=== PATIENT | male | born 1965 ===

== ENCOUNTER 2024-12-28 10:26 | Emergency (ER) | payer MEDICAID, OTHER ==
[~2024-12-28] VITALS: Ht 185.4 cm; Wt 92.6 kg
[2024-12-28 10:34] VITALS: BP 185/112; RESP 24; O2SAT 99
--- NOTE | 2024-12-28 10:50 | ED.PDOC ---
HPI Comments HPI: Initial Vital Signs: Temp : 98.4F BP: 185/112 HR: 119 RR: 24 SpO2: 99% Past Medical History: Anxiety, Depression, ADHD, CHF, GERD, Orthostatic HTN Past Surgical History: Denies Social History: Denies smoking, ETOH, or drug use. Medications: Nitroglycerin Allergies: NKDA HPI: Poor Historian. 59-year-old male brought in by ambulance from home for a near-syncope episode that happened this morning. Patient was trying to get out of bed felt lightheaded and fell forward without any head or neck injury. No loss of consciousness. There was able to brace himself going down against the n ightstand. Patient developed chest pain afterwards that is nonspecific. He also stated he had some chest pain last night that is also nonspecific in the took some nitroglycerin for it were and went away. Patient was history of orthostatic hypotension. Vital signs pre-hospital course at his place of residency were stable with the exception of tachycardia. Patient had some nause a and was given Zofran by EMS. Patient still has some nonspecific intermittent chest discomfort. Past Medical History: Past Surgical History: REVIEW OF SYSTEMS: CONSTITUTIONAL: Denies acute: fever, diaphoresis, chills, HEAD: Denies acute: headache, photophobia Eyes: Denies acute: Double vision, vision loss, eye pain, eye discharge. EARS: Denies acute: tinnitus, hearing loss, ear discharge, ear pain, THROAT: Denies acute: sore throat, swelling, difficulty swallowing , pain with swallowing, change in voice. NECK: Denies acute: neck pain, neck swelling, stiff neck. HEART: Denies acute : , palpitations, LUNGS: Denies acute: SOB, wheezing, cough, hemoptysis ABDOMEN: Denies acute: abdominal pain, Nausea, Vomiting, diarrhea, melena , hematemesis, hematochezia SKIN: Denies acute: rash, redness, lesions, itchiness. EXTREMITIES: Denies acute: calf pain, numbness, tingling, weakness, denies pain in extremity. Denies acute: Low back pain. Neuro: Denies acute: focal neurological deficit, motor or sensory focal neurological deficit, tremors, seizure like activity, confusion, change in mental status, loss of bowel or bladder function, cauda equina like symptoms. : Denies acute: dysuria, hematuria, flank pain, increase in urinary frequency. PSYCH: Denies acute: hallucination, suicidal ideation, homicidal ideation. PHYSICAL EXAM: General: no acute distress, awake and alert. Head: normocephalic, atraumatic. Neck: supple, trachea is midline, no swelling. Throat: Normal phonation. Eyes:, no erythema, no purulent discharge, no proptosis, no icterus. Heart: regular tachycardic, no significant murmur appreciated. Lungs: no apparent respiratory distress, Able to speak in full sentences. No wheezing, no rhonchi, no crackles. No stridors Clear to auscultation bilaterally. Abdomen: non tender to palpation, non distended, soft, no guarding, no rebound, + bowel sounds. Neuro: Awake, Alert, oriented to name, self, situation, follows commands GCS=15. Speech is normal. Skin: no petechia, no purpura, no cyanosis, non-pale, not jaundice. Lower extremities: --no - Pitting edema no deformity, no focal swelling, no calf TTP. Makes eye contact. moves all four extremities. Face: no apparent facial droop. ED COURSE: Chief Complaint: Chest Pain Time Seen by MD: 10:41 Reviewed Notes: Nurses Notes, Allergies Allergies: Coded Allergies: NSAIDs (Verified Allergy, Unknown, 12/28/24) Promethazine (Verified Allergy, Unknown, 12/28/24) Sulfamethoxazole w/Trimethoprim (Verified Allergy, Unknown, 12/28/24) Information Source: Patient, Emergency Med Personnel Mode of Arrival: EMS Was a procedure done? Was a procedure done?: No CP Differential Dx Differential Diagnosis: N/A Differential Diagnosis: Other (Ddx include but not limitied to gastritis, musculoskeletal pain, radiculopathy, atypical chest pain, dissection, aneurysm, ACS, unstable angina, hiatal hernia, GERD, anxiety, costochondritis, PE, pneumothroax, neoplasm, cardiac ischemia, drug abuse, anemia.) X-Ray, Labs, Meds, VS Vital Signs Date Time Temp Pulse Resp B/P (MAP) Pulse Ox O2 Delivery O2 Flow Rate FiO2 12/28/24 11:49 Room Air* 0 21 12/28/24 11:35 185/112 12/28/24 11:25 108 12/28/24 10:35 106 12/28/24 10:34 98.4 119 24 185/112 (136) 99 Lab Test 12/28/24 11:07 Range/Units White Blood Count 7.9 4.4-10.8 10^3/uL Red Blood Count 5.83 4.5-5.90 10^6/uL Hemoglobin 16.2 13.5-17.5 g/dL Hematocrit 48.9 41.0-53.0 % Mean Corpuscular Volume 83.9 80.0-100.0 fL Mean Corpuscular Hemoglobin 27.9 L 28.0-32.0 pg Mean Corpuscular Hemoglobin Concent 33.2 32.0-36.0 g/dL Red Cell Distribution Width 16.6 H 11.8-14.3 % Platelet Count 323 140-450 10^3/uL Mean Platelet Volume 7.8 6.9-10.8 fL Neutrophils (%) (Auto) 76.8 37.0-80.0 % Lymphocytes (%) (Auto) 15.1 10.0-50.0 % Monocytes (%) (Auto) 6.3 0.0-12.0 % Eosinophils (%) (Auto) 1.2 0.0-7.0 % Basophils (%) (Auto) 0.6 0.0-2.0 % Neutrophils # (Auto) 6.1 1.6-8.6 10 ^3/uL Lymphocytes # (Auto) 1.2 0.4-5.4 10 ^3/uL Monocytes # (Auto) 0.5 0-1.3 10 ^3/uL Eosinophils # (Auto) 0.1 0-0.8 10 ^3/uL Basophils # (Auto) 0 0-0.2 10 ^3/uL Nucleated Red Blood Cells 0.2 % Sodium Level 134 L 136-145 mmol/L Potassium Level 4.2 3.5-5.1 mmol/L Chloride Level 99 98-107 mmol/L Carbon Dioxide Level 25 20-31 mmol/L Anion Gap 10 5-15 Blood Urea Nitrogen 11 9-23 mg/dL Creatinine 0.99 0.700-1.30 mg/dL Glomerular Filtration Rate Calc 88 >90 mL/min BUN/Creatinine Ratio 11.1 10.0-20.0 Serum Glucose 155 H 74-106 mg/dL Lactic Acid Level 2.0 0.4-2.0 mmol/L Calcium Level 10.3 8.7-10.4 mg/dL Magnesium Level 1.5 L 1.6-2.6 mg/dL Troponin I High Sensitivity 9 </=54 ng/L B-Type Natriuretic Peptide 186.61 0-100 pg/mL Current Medications Medications (Trade) Dose Ordered Sig/Ella Route Start Time Stop Time Status Last Admin Aspirin (Ecotrin Enteric Coated Tablet) 325 mg ONCE ONCE PO 12/28/24 11:00 12/28/24 11:01 DC 12/28/24 11:34 Nitroglycerin (Ntrostat Sublingual) 0.4 mg ONCE ONCE SL 12/28/24 11:00 12/28/24 11:01 DC 12/28/24 11:35 Sodium Chloride 1,000 ml @ 1,000 mls/hr Q1H ONCE IV 12/28/24 11:00 12/28/24 11:59 DC 12/28/24 11:34 [place] [id number] Ph: [phone] DIAGNOSTIC IMAGING Diagnostic Imaging Report : [id number] Signed PATIENT: ANNAMARIA GUERREROT: [id number] UNIT: [id number] : 1965 LOC: ER ROOM / BED: / AGE / SEX: 59 / M ADM STATUS: REG ER SERVICE 1045 ORDERING PHYSICIAN: ER PROCEDURE(s): CXR1 - CHEST XRAY 1 VIEW REASON: CP ORDER NUMBER(s): [id number], ACCESSION NUMBER(s): [id number] EXAM: XR Chest, 1 View CLINICAL INDICATION: CP TECHNIQUE: Frontal view of the chest. COMPARISON: None FINDINGS: LUNGS AND PLEURAL SPACES: Unremarkable. No consolidation. No pneumothorax. HEART: Unremarkable. No cardiomegaly. MEDIASTINUM: Unremarkable. Normal mediastinal contour. BONES/JOINTS: Unremarkable. No acute fracture. OTHER FINDINGS: . None. IMPRESSION: No acute cardiopulmonary process. ATED BY: JUAN BURDEN MD DICTATED DATE/TIME: 12/28/24 1118 SIGNED BY: JUAN BURDEN MD SIGNED DATE/TIME: 12/28/241117 CC: Time of 1ST Reevaluation: 11:41 Reevaluation 1ST: Improved Patient Education/Counseling: Diagnosis, Treatment Family Education/Counseling: Diagnosis, Treatment Comments Patient presented with the above HPI.--cardiac---workup was initiated. patient was found with the above mentioned diagnosis. the following medications were ordered: please refer to order lists of meds and tests obtained by myself Dr. Alvarenga. Patient ED course and VS have been stabilized. Patient has been reassessed in the ED and remained in a stable condition. Pertinent incidental findings were discussed with the patient and/or family. Patient/family voices understanding and is agreeable with plan. Patient has been observed in the ED adequate length of time to insure improvement/stability. Escalation of care considered: Consideration of escalation to observation or admission Patient was ADMITTED to the medicine team for further evaluation and treatment of their presentation. However patient decided to leave against medical advice. All the reports of any imaging studies that were ordered by myself were reviewed by myself. Departure 1 Departure Time of Disposition: 12:48 Impression: Primary Impression: Chest pain Additional Impression: Near syncope Disposition: ADMITTED INPATIENT Admit to: Tele Condition: Guarded Discharged With: Self Critical Care Note Critical Care Time?: No ( ) Heart Score Heart Score: Heart Score Response (Comments) Value History Moderate Suspicious 1 EKG Normal 0 Age 45-64 1 Risk Factors 1 or 2 risk factors 1 Troponin Normal limit 0 Total 3 I personally scribed for RENETTA ALVARENGA DO ([email or web address]) on 12/28/24 at 10:50. Electronically submitted by Ed Kenny ([email or web address]). I personally scribed for RENETTA ALVARENGA DO ([email or web address]) on 12/28/24 at 11:44. Electronically submitted by Ed Kenny ([email or web address]). RENETTA ALVARENGA DO Dec 28, 2024 10:50
--- NOTE | 2024-12-28 11:20 | DVH ---
EXAM: XR Chest, 1 View CLINICAL INDICATION: CP TECHNIQUE: Frontal view of the chest. COMPARISON: None FINDINGS: LUNGS AND PLEURAL SPACES: Unremarkable. No consolidation. No pneumothorax. HEART: Unremarkable. No cardiomegaly. MEDIASTINUM: Unremarkable. Normal mediastinal contour. BONES/JOINTS: Unremarkable. No acute fracture. OTHER FINDINGS: . None. IMPRESSION: No acute cardiopulmonary process.
[2024-12-28 11:24] LABS: Basophils # (auto) 0 10 ^3/uL (0-0.2); Basophils % (auto) 0.6 % (0.0-2.0); Eosinophils # (auto) 0.1 10 ^3/uL (0-0.8); Eosinophils % (auto) 1.2 % (0.0-7.0); Hematocrit 48.9 % (41.0-53.0); Hemoglobin 16.2 g/dL (13.5-17.5); Lymphocytes # (auto) 1.2 10 ^3/uL (0.4-5.4); Lymphocytes % (auto) 15.1 % (10.0-50.0); Mean Corpuscular Hemoglobin 27.9 pg (28.0-32.0); Mean Corpuscular Hgb Conc. 33.2 g/dL (32.0-36.0); Mean Corpuscular Volume 83.9 fL (80.0-100.0); Monocytes # (auto) 0.5 10 ^3/uL (0-1.3); Monocytes % (auto) 6.3 % (0.0-12.0); Neutrophils # (auto) 6.1 10 ^3/uL (1.6-8.6); Neutrophils % (auto) 76.8 % (37.0-80.0); Nucleated Red Blood Cells % 0.2 %; Platelet Count (auto) 323 10^3/uL (140-450); Red Blood Cells 5.83 10^6/uL (4.5-5.90); Red Cell Distribution Width 16.6 % (11.8-14.3); White Blood Cell 7.9 10^3/uL (4.4-10.8)
[2024-12-28 11:25] VITALS: PULSE 108
[2024-12-28] MEDS: SODIUM CHLORIDE 0.9% 1,000 ML IV ONE (11:34)
[2024-12-28] MEDS: ASPirin-EC 325mg tab PO ONE (11:34)
[2024-12-28] MEDS: NITROGLYCERIN 0.4 MG SL TAB SL ONE (11:35)
[2024-12-28 11:40] LABS: Anion Gap 10 (5-15); Carbon Dioxide 25 mmol/L (20-31); Chloride 99 mmol/L (98-107); Potassium 4.2 mmol/L (3.5-5.1)
[2024-12-28 11:41] LABS: Calcium 10.3 mg/dL (8.7-10.4)
[2024-12-28 11:44] LABS: Sodium 134 mmol/L (136-145)
[2024-12-28 11:46] LABS: BUN/Creatinine Ratio 11.1 (10.0-20.0); Blood Urea Nitrogen 11 mg/dL (9-23)
[2024-12-28 11:47] LABS: Glucose 155 mg/dL (74-106); Magnesium 1.5 mg/dL (1.6-2.6)
[2024-12-28] MEDS ORDERED: MAGNESIUM SULFATE 1GM/100ML 100 ML IV ONE (12:00)
--- NOTE | 2024-12-28 19:17 | ECG ---
[facility] Test Date: 2024-12-28 Test Time: 10:35:51 Pat Name: CHALO GUERRERO Department: er Room: Gender: M Lead Nurse: miya : 1965 Requested By: EMERGENCY EMERGENCY Order Number: [id number] Reading MD: Measurements Intervals [place] Rate: 106 P: 51 NM: 160 QRS: -23 QRSD: 87 T: 52 QT: 356 QTc: 473 Interpretive Statements Sinus tachycardia Probable left atrial enlargement Borderline left axis deviation Please click the below link to view image of tracing.
--- NOTE | 2024-12-28 19:18 | ECG ---
[facility] Test Date: 2024-12-28 Test Time: 11:25:20 Pat Name: CHALO GUERRERO Department: er Room: Gender: M Creative Director: miya : 1965 Requested By: EMERGENCY EMERGENCY Order Number: [id number] Reading MD: Measurements Intervals [place] Rate: 108 P: 45 MI: 151 QRS: -2 QRSD: 90 T: 37 QT: 329 QTc: 441 Interpretive Statements Sinus tachycardia Probable left atrial enlargement Please click the below link to view image of tracing.
== END 2024-12-28 12:48 | disposition left against medical advice (07) ==
LOC: EDBD 10:26 → ER 10:26
DX: R07.89 Other chest pain (principal); R55 Syncope and collapse; I11.0 Hypertensive heart disease with heart failure; I50.9 Heart failure, unspecified; K21.9 Gastro-esophageal reflux disease without esophagitis; F41.9 Anxiety disorder, unspecified; F32.9 Major depressive disorder, single episode, unspecified; F90.9 Attention-deficit hyperactivity disorder, unspecified type; Z88.1 Allergy status to other antibiotic agents; Z88.2 Allergy status to sulfonamides; Z88.6 Allergy status to analgesic agent; Z79.899 Other long term (current) drug therapy
CPT/HCPCS: 36415; 71045; 80048; 83605; 83735; 83880; 84484; 85025; 93005; 96360; 99285; J7030